=== PATIENT | male | born 1965 | race Caucasian/White ===

== ENCOUNTER 2024-07-31 14:48 | Emergency (ER) | payer SELFPAY ==
[2024-07-31 14:50] VITALS: BP 146/101
[2024-07-31 16:33] VITALS: BMI 23.7
--- NOTE | 2024-07-31 16:53 | ED.GENMED ---
History of Present Illness
General
Chief Complaint: Skin Problem
Source: patient
Exam Limitations: none
Time Seen by Provider: 07/31/24 16:08
Nursing documentation reviewed up to this point in time: agreed with
History of Present Illness
History of Present Illness:
Patient is a 59-year-old male who presented with rash rash to the right side of his face. He notices approximately 6 days ago. He reports this started out as a little cluster but has been spreading. He does feel very sensitive. Starting
yesterday he noticed some of this rash around his right eyelid and his right eye does feel dry and sensitive. He denies any decreased vision. He denies any fever or chills. He also noticed some swelling behind his right ear.
Past History
Past History
ED Past Medical History: None
Social History
Tobacco: Non-smoker
Living: with family
Employment: Employed
Review of Systems
Review of Systems
Allergies reviewed?: Yes
All Other Systems: ROS reviewed and negative except as documented in HPI and ROS
Constitutional: Reports no symptoms; Denies fever, fatigue or chills
EENT: Reports other (irritated right eye )
Respiratory: Reports no symptoms
Cardiac: Reports no symptoms
ABD/GI: Reports no symptoms
: Reports no symptoms
Musculoskeletal: Reports no symptoms
Skin: Reports other (rash to right forehead )
Neurological: Reports no symptoms
Psychiatric: Reports no symptoms
Phy Exam
General Physical Exam
General Presentation: no apparent distress
General age: appears stated age
General Skin: warm and dry
General Habitus: normal
General Mental: alert
General Hydration: appears well hydrated
ENT Exam
ENT Exam: EOMI, neck supple and other (+ swollen lymph node posterior right ear )
Neurological Exam
Neurological Exam: alert and oriented x3
Musculoskeletal Exam
Musculoskeletal Exam: full ROM
Skin Exam
Skin Exam: normal color and warm/dry
Psychiatric Exam
Psychiatric Exam: normal mood/affect and other
Course
Orders/Labs/Results
Orders:
Orders
07/31/24 16:56
Purified Water Eye Wash [Dacriose Eye Wash Solution] 120 ml .ROUTE .STK-MED ONE
07/31/24 16:59
Visual Acuity- Treatment ONCE
07/31/24 17:14
Valacyclovir HCl [Valtrex] 1,000 mg PO NOW STA
07/31/24 17:15
Erythromycin (Ilotycin) [Erythromycin 0.5% Ophthalmic Ointment] See Dose Instructions OPHTH NOW STA
Vital Signs
Initial and Last Documented VS:
Initial Vital Signs
Temp Pulse Resp BP Pulse Ox
97.9 F 83 18 146/101 100
07/31/24 14:50 07/31/24 14:50 07/31/24 14:50 07/31/24 14:50 07/31/24 14:50
Last Documented Vital Signs
Temp Pulse Resp BP Pulse Ox
97.9 F 83 18 146/101 100
07/31/24 14:50 07/31/24 14:50 07/31/24 14:50 07/31/24 14:50 07/31/24 14:50
Scudding Inspector consulted with Physician
Scudding Inspector consulted with physician?: Yes
Name of Physician Consulted: Clotilde
MDM/Problems Addressed
Differential Diagnosis Includes:
not limited to rash/shingles
MDM/Problems Addressed:
Rashes consistent with shingles. Patient no acute distress. He does however complain of dry sensation irritated to the right eye with lesions around the eyelid. Examined with fluorescein I do not see any dendritic lesion however Case reviewed
with ophthalmology. Will treat with Valtrex 1 g 3 times daily for the next 10 days in addition we will give erythromycin and prednisone. Patient to follow-up with ophthalmology next week.
*Critical Care Note
Total Time (30-74mins, 75-104mins- exclusive of procedures): Not Applicable
Patient Management
Discussion with other providers: Barrel Driller (optho DR Prince Weber )
ED Attending Note
-
Portions of this chart may have been created with voice recognition software.� Occasional wrong word or��sound alike� substitutions may have occurred due to the inherent limitations of voice recognition software.
Discharge Plan
Departure
Patient Disposition: Home (Routine Discharge)
Date of Disposition: 07/31/24
Time of Disposition: 17:48
Patient with high blood pressure during this ER visit?: Yes
Condition: Fair
Covid-19: Not Applicable
Discharge Problem:
Shingles
Instructions: Shingles, BLOOD PRESSURE
Prescriptions:
New
valacyclovir [Valtrex] 1 gram tablet
1,000 mg PO TID Qty: 30 0RF
prednisolone acetate 1 % drops,suspension
1 drp ophthalmic (eye) QID Qty: 10 0RF
Rx Instructions:
Apply as directed to affected eye every 6 hours
Referrals:
NONE,* [Family Provider] -
Activity Restrictions/Additional Instructions:
As discussed you use erythromycin ointment: Apply to inner eye between 1 and 4 times daily
As discussed prescriptions for prednisone acetate eyedrops were sent to your pharmacy along with Valtrex to treat shingles. Please follow-up closely with ophthalmology next week call on Friday to make an appointment. You must be seen next week.
In addition please follow with your family doctor for further reevaluation. Return if any worsening of symptoms and increased pain fever chills pain or decreased vision with eye or any further concerns.
Interventions
Interventions:
*Risk Screen - Suicide Last Done: 07/31/24 16:33
*General Assessment Last Done: 07/31/24 16:33
*Neglect/Abuse Screening Last Done: 07/31/24 16:33
ED-Skin Assessment Last Done: 07/31/24 16:33
Discharge Date and Time
Print Language: BELARUSIAN
[2024-07-31] MEDS: VALTREX 1000 MG PO (17:35)
[2024-07-31] MEDS: ERYTHROMYCIN 0.5% OPHTHALMIC OINTMENT 1 APPLIC OPHTH (17:35)
[2024-07-31 18:05] VITALS: BP 138/96
== END 2024-07-31 18:12 | disposition home or self-care (01) ==
LOC: EMR 14:48
PROVIDERS: EMERGENCY PHYSICIAN Emergency Medicine
DX: B02.9 Zoster without complications (principal); Z79.624 Long term (current) use of inhibitors of nucleotide synthesis
CPT/HCPCS: 99282